=== PATIENT | female | born 1955 | race Caucasian/White ===

== ENCOUNTER 2019-09-15 17:51 | Emergency (ER) | payer MEDICARE, OTHER, SELFPAY ==
--- NOTE | 2019-09-15 17:45 | RT.EKG_ITS ---
APPROVED REPORT Exam: Resting ECG Patient Location: E HR:83 bpm ECG Measurements Heart Rate 83 AXIS WY 143 P -17 QRSd 71 QRS 15 QT 350 T 11 QTc 412 <Conclusion> Sinus rhythm...normal P axis, V-rate 60- 99 nondiagnostic
[2019-09-15 17:58] VITALS: BP 121/64; PULSE 84; RESP 18; TEMP 36.8; O2SAT 95
--- NOTE | 2019-09-15 18:00 | RT.EKG_ITS ---
APPROVED REPORT Exam: Resting ECG Patient Location: E HR:82 bpm ECG Measurements Heart Rate 82 AXIS ID 151 P -7 QRSd 81 QRS 2 QT 377 T -2 QTc 442 <Conclusion> Sinus rhythm...normal P axis, V-rate 60- 99 Low voltage, precordial leads...precordial leads <1.0mV Normal [place] I have reviewed and interpreted ECG and agree with software generated interpretation.
--- NOTE | 2019-09-15 18:12 | ED.GENADUL_ITS ---
Discharge Plan Disposition Patient Disposition: HOME Condition: Good Discharge Details Chief Complaint: Dizzy/Sync Clinical Impression: Weakness, Light-headedness Primary Care Provider: Clarisa Capps ED Provider: Rogerio Witt Meds and New Rx's Prescriptions: Continued levothyroxine 100 mcg Capsule RF: 0 Discharge Instructions Instructions: Lightheadedness (ED) Additional Instructions: Your work-up here in the emergency department is unremarkable. Your vital signs were all normal. CT scan of the head was unremarkable. Laboratory studies and EKG fine. Your thyroid studies are just a little bit of but these are unlikely to be causing your symptoms. Please go home and rest the rest of the weekend. Drink plenty of fluids and stay hydrated. Follow-up with your primary care in [place] this week. Return to ED for confusion, neurologic changes, chest pain, severe headache, syncope, shortness of breath. Referrals: Primary Care Provider [Outside] Discharge Data Discharge Date/Time-TO BE ENTERED AT DEPARTURE: 09/15/19 22:35 Medical Decision Making <Dennis Angulo MD - Last Filed: 09/24/19 17:14> 1829??64-year-old female with history of hypothyroidism, here with general malaise and lightheadedness with nausea. Patient is hemodynamically stable. ECG is nondiagnostic. Fingerstick normal. Unclear etiology for symptoms at this time. Consider hypovolemia versus hypothyroidism versus less likely CVA. Plan to obtain labs including electrolytes, TSH, and CT of the head. I will give IV fluid bolus and Zofran IV. 1930--patient reassessed and feeling better after 1 L bolus of saline. Labs reviewed and initial troponin negative. Electrolytes normal. Mild anion gap of 11.2 noted. TSH is low with free T4 pending. Urinalysis unremarkable. CT of the head was interpreted by radiology: No acute intracranial abnormality. Plan to give additional IV fluid bolus of 500 mL LR. Plan for delta troponin and repeat ECG, continued monitoring and reassessment. <Rogerio Witt MD - Last Filed: 09/15/19 22:56> Patient had presented to ED with onset of nausea and lightheadedness on the way home from eating out. Initially seen and evaluated by Dr. Angulo, please see his evaluation note. Patient signed out to me pending repeat EKG and troponin and reevaluation. Patient remained stable. Repeat EKG and troponin are normal. She is not orthostatic. She had no arrhythmias while here. Continues to not feel completely back to baseline but does feel better. Ambulatory in the department without problem. Repeat neurologic exam remains normal and nonfocal. She has not describing vertiginous or off balance issues. At this point just continues to complain of generalized fatigue and weakness. She does report previous episodes of feeling like she was going to pass out but nothing as intense as today. At this point I think she is safe for discharge. She should rest and take it easy over the rest of the weekend and stay hydrated. Follow-up with primary care in [place] this week. Return to ED if develops any neurologic changes, mental status changes, chest pain, shortness of breath, severe headache, other concerns. Lab Data Lab results reviewed: Yes I reviewed the patient's lab results. HPI <Dennis Angulo MD - Last Filed: 09/24/19 17:14> General Mode of arrival: EMS . Date/Time Provider Initiated Documentation: 09/15/19 18:10 . Limitations to Documentation: altered mental status . Information obtained by: patient and EMS . HPI Narrative: 64-year-old female with history of hypothyroidism, presents with general malaise, fatigue, lightheadedness that started while she was riding on back of a motorcycle with family after having seafood dinner and felt nauseous and lightheaded like she was going to pass out. Symptoms have persisted. Symptoms are severe. Constant. No modifiers. Patient notes prior to dinner she was feeling well. She denies associated chest pain, shortness of breath, headache, abdominal pain, focal numbness or weakness, fever or illness. No recent travel. Patient notes she has been taking her medication as prescribed. Related Data Home Medications Medication Instructions Recorded Confirmed levothyroxine 09/15/19 Allergies Allergy/AdvReac Type Severity Reaction Status Date / Time bee venom protein (honey bee) Allergy Unverified 09/15/19 18:05 General Stated Complaint: Dizzy/Sync SENG: 2 Review of Systems <Dennis Angulo MD - Last Filed: 09/24/19 17:14> All systems reviewed & are unremarkable except as noted in HPI and below Constitutional Constitutional: Denies chills, Reports fatigue, Denies fever(s), Denies headache(s) and Reports malaise ENT Ears, Nose, Mouth, and Throat: Denies headache(s) Cardiovascular Cardiovascular: Denies chest pain and Denies dyspnea Respiratory Respiratory: Denies cough and Denies dyspnea Gastrointestinal Gastrointestinal: Denies abdominal pain and Reports nausea Neurologic Neurologic: Denies headache(s) Endocrine Endocrine: Reports fatigue PFSH <Dennis Angulo MD - Last Filed: 09/24/19 17:14> Medical History Hypothyroid (Chronic) Social History Smoking/Tobacco Use Status: Never Alcohol Intake: never Drug use: Never Substance use type: does not use Do you feel safe at home: Yes Do you feel safe in your relationship?: Yes Exam <Dennis Angulo MD - Last Filed: 09/24/19 17:14> Const General: cooperative and no acute distress Nutritional Appearance: well nourished Orientation: obtunded HENRI Head: normocephalic and atraumatic Mouth: moist mucous membranes Eyes Conjunctivae: normal conjunctivae Sclera: normal sclerae EOM: EOM intact bilaterally Neck Neck: trachea midline and supple Resp Auscultation: clear to auscultation bilaterally, no rales, no rhonchi and no wheezes Cardio Jugular venous pressure: no JVD Rate: regular rate and not tachycardic Rhythm: regular rhythm GI Palpation: soft, not firm, no guarding, no masses, not rigid and nontender Skin General skin exam: no rashes or lesions noted Neuro General: patient alert, patient awake, patient oriented x3 and tone normal Extrem General: no calf tenderness and no edema Psych Appearance: grossly normal Speech and Movement: speech clear and slowed movement Thought Content: normal Insight: insight good Course <Dennis Angulo MD - Last Filed: 09/24/19 17:14> Vital Signs Vital signs: Vital Signs Temperature 36.8 C 09/15/19 17:58 Pulse 84 09/15/19 17:58 Respiratory Rate 18 09/15/19 17:58 Blood Pressure 121/64 09/15/19 17:58 Pulse Oximetry 95 09/15/19 17:58 Temperature 36.8 C 09/15/19 17:58 Temperature Source Temporal Artery Scan 09/15/19 17:58 Pulse 84 09/15/19 17:58 Respiratory Rate 18 09/15/19 17:58 Blood Pressure 121/64 09/15/19 17:58 Pulse Oximetry 95 09/15/19 17:58 Oxygen Delivery Method Room Air 09/15/19 17:58 Oxygen Flow Rate 0 09/15/19 17:58 Pain Level 0 09/15/19 17:58 Sign Out <Dennis Angulo MD - Last Filed: 09/24/19 17:14> Sign Out Data: Sign Out Comment: Follow-up on delta troponin and repeat ECG, reassess the patient for disposition. Last updated by Dennis Angulo MD at 09/15/19 20:04
[2019-09-15] MEDS: Ondansetron 4 MG/2 ML VIAL IVP (18:20)
[2019-09-15] MEDS: Normal Saline 1,000 ML 1000 ML IV (18:21)
[2019-09-15 18:23] LABS: Abs Immature Grans 0.01 k/cumm (0.0-0.09); Absolute Basophil Count 0.02 k/cumm (0.0-0.2); Absolute Lymphocyte Count 2.11 k/cumm (1.2-3.4); Absolute Monocyte Count 0.75 k/cumm (0.11-0.7); Basophils % 0.3; Eosinophils % 1.3; HCT 36.4 % (36.0-46.0); HGB 12.7 g/dL (12.0-15.5); Immature Grans % 0.1 %; Lymphocytes % 26.7; Mean Corp. HGB Concentration 34.9 g/dL (32.0-36.0); Mean Corpuscular Hemoglobin 30.7 pg (27.0-33.0); Mean Corpuscular Volume 87.9 fL (80-95); Mean Platelet Volume 11.4 fL (8.0-11.0); Monocytes % 9.5; Neutrophils % 62.1; Platelet Count 205 x1000/uL (130-400); RBC 4.14 m/cumm (4.00-5.20); White Blood Cell Count 7.89 k/cumm (4.4-10.8)
--- NOTE | 2019-09-15 18:35 | DI.CT_ITS ---
EXAM: CT HEAD WO CLINICAL HISTORY: Fatigue, generalized weakness, dizziness. TECHNIQUE: Imaging Protocol: Axial computed tomography images with coronal and sagittal reformatted images were created and reviewed COMPARISON: No exams were available for comparison FINDINGS: Ventricles and Extra axial spaces: Normal in size and morphology for the patient's age. Hemorrhage: None. Cerebral parenchyma: Normal. Midline shift: None. Brainstem/Cerebellum: Normal. Calvarium: Normal. Visualized Paranasal sinuses/Mastoids: Clear. Soft Tissues: Unremarkable. IMPRESSION: No acute intracranial process. RADIATION DOSE DELIVERED: Total DLP DATA REPOSITORY: All CT scans at this facility are submitted to the National Radiology Data Registry (NRDR) Dose Index Registry (DIR) with the [employer] (ACR). RADIATION OPTIMIZATION: All CT scans at this facility use at least one of these dose optimization te chniques: automated exposure control; mA and/or kV adjustment per patient size (includes targeted exa ms where dose is matched to clinical indication); or iterative reconstruction.
[2019-09-15 18:42] VITALS: BP 117/64; PULSE 81; RESP 14; O2SAT 92
[2019-09-15 18:45] LABS: ALT 19 U/L (14-59); AST 16 U/L (15-37); Albumin 3.5 g/dL (3.4-5.0); Alkaline Phosphatase 95 U/L (46-116); Anion Gap 11.2 mmol/L (3-11); BUN 18 mg/dL (7-18); Bilirubin, Total 0.5 mg/dL (0.2-1.0); CO2 24.8 mmol/L (21.0-32.0); CREATININE 0.93 mg/dL (0.55-1.02); Chloride 105 mmol/L (98-107); Glucose 140 mg/dL (74-106); Potassium 3.7 mmol/L (3.5-5.1); Sodium 141 mmol/L (136-145); TSH (W/Ref FT4) 0.05 uIU/mL (0.36-3.74); Total Protein 6.8 g/dL (6.4-8.2)
--- NOTE | 2019-09-15 18:48 | DI.VRAD_ITS ---
PROCEDURE INFORMATION: Exam: CT Head Without Contrast Exam date and time: 09/15/2019 6:12 PM Age: 64 years old Clinical indication: Dizziness and other: Weakness, fatigue TECHNIQUE: Imaging protocol: Computed tomography of the head without contrast. COMPARISON: No relevant prior studies available. FINDINGS: Brain: Normal. No hemorrhage. Unremarkable white matter. No mass effect. Ventricles: Normal. No ventriculomegaly. Bones/joints: Unremarkable. No acute fracture. Sinuses: Visualized sinuses are unremarkable. No fluid levels. Mastoid air cells: Visualized mastoid air cells are well aerated. Soft tissues: Unremarkable. IMPRESSION: No acute intracranial abnormality. Dictated and Authenticated by: Kala Mcnulty MD. Ordering:MARYCHUY Collins MD
[2019-09-15 18:52] LABS: Troponin I < 0.05 ng/mL (<0.06)
[2019-09-15 19:14] LABS: Bilirubin Negative (Negative); Blood Negative (Negative); Clarity Clear (Clear); Glucose Negative (Negative); Ketones Negative (Negative); Leukocyte Esterase Negative (Negative); Nitrite Negative (Negative); Urobilinogen 0.2 EU/dL (Up TO 0.2)
[2019-09-15] MEDS: Lactated Ringers 500 ML IV (19:34)
[2019-09-15 19:53] VITALS: BP 103/58; PULSE 84; RESP 15; O2SAT 92
--- NOTE | 2019-09-15 19:53 | NUR.NOTE ---
report to DARVIN Plummer
[2019-09-15 19:56] LABS: FREE T4 1.54 ng/dL (0.76-1.46)
[2019-09-15 21:38] LABS: Troponin I < 0.05 ng/mL (<0.06)
[2019-09-15 21:47] VITALS: BP 101/62; BP 102/63; BP 106/54; PULSE 78; PULSE 82; PULSE 88
[2019-09-15 21:52] VITALS: BP 102/63; PULSE 88; RESP 16; TEMP 36.6; O2SAT 97
--- NOTE | 2019-09-15 21:58 | NUR.NOTE ---
Ambulated to BR with steady gait. Pt denies dizziness, lightheadedness.
== END 2019-09-15 22:35 | disposition home or self-care (01) ==
PROVIDERS: Student in an Organized Health Care Education/Training Program; Emergency Provider Emergency Medicine; PCP Registered Nurse
DX: R42 Dizziness and giddiness (principal); R53.1 Weakness; R11.0 Nausea
CPT/HCPCS: 36415; 80053; 93005; 96361; 96374; 99285; 70450; 81003; 83735; 84439; 84443; 84484; 85025; 93010; J2405

== ENCOUNTER 2021-07-29 09:47 | Outpatient (CLI) | payer MEDICARE, OTHER, SELFPAY ==
[2021-07-29 11:21] LABS: Source Nasal/Nares
[2021-07-29 16:34] LABS: COVID-19 PCR Negative (Negative)
== END 2021-07-29 09:48 | disposition home or self-care (01) ==
LOC: LBO 09:49
PROVIDERS: PCP Registered Nurse; Visit Provider Podiatrist
DX: Z20.822 Contact with and (suspected) exposure to COVID-19 (principal); Z01.818 Encounter for other preprocedural examination
CPT/HCPCS: 87635; U0005

== ENCOUNTER 2021-07-31 07:21 | Day surgery (SDC) | payer MEDICARE, OTHER, SELFPAY ==
--- NOTE | 2021-07-30 17:28 | HPE_ITS ---
Date of service: 07/31/21 Assessment and Plan Assessment and plan (1) Bunion, right foot: Start date: 07/31/21 Status: Acute Assessment and plan: surgical repair of the right bunion deformity with osteotomy. Potential risks and complications were discussed. All questions were answered in detail. No promises made as to the final out come of surgery. Informed consent was von carson History of Present Illness History of Present Illness Chief Complaint: HAV deformity right foot Narrative: 66 YO female with progressive deformity and pain associated with a right bunion. Pain is interfering with shoe gear and daily activity. Palliative treatments have failed to provide relief of symptoms. PFSH All Active Problems (Updated 07/30/21 @ 17:35 by Nehemiah Callaway DPM) Bunion, right foot (Acute) Medical History Hypothyroid Surgical History History of carpal tunnel surgery History of mandibular surgery Pt. stated It was pulling my bottom jaw forward and putting pins in it Hx of tubal ligation Status post de Quervain's release surgery Social History Smoking/Tobacco Use Status: Never Smoking risk assessment performed?: Yes Alcohol Intake: never Drug use: Never Substance use type: does not use Do you feel safe at home: Yes Do you feel safe in your relationship?: Yes Meds Allergies and Home Medications Allergies Allergy/AdvReac Type Severity Reaction Status Date / Time bee venom protein (honey bee) Allergy Severe Anaphylaxis Unverified 07/30/21 08:09 Home Medications Medication Instructions Recorded Confirmed Type Lactobacillus 40-Bifidobact 1 cap PO HS 07/30/21 07/30/21 History 3-S.thermophilus 100 billion cell capsule (Probiotic) [place]'s wort 300 mg tablet 375 mg PO DAILY 07/30/21 07/30/21 History levothyroxine 50 mcg tablet 50 mcg PO DAILY 07/30/21 07/30/21 History magnesium 250 mg tablet 250 mg PO HS 07/30/21 07/30/21 History multivitamin 1 tab PO DAILY 07/30/21 07/30/21 History multivitamin,wq-ssdo-iwuinzgv 1 tab PO DAILY 07/30/21 07/30/21 History omega-3 fatty acids-vitamin E 1 cap PO HS 07/30/21 07/30/21 History 1,000 mg capsule potassium 99 mg tablet 99 mg PO DAILY 07/30/21 07/30/21 History tumeric 100 mg-rolanad 150 mg-olive 1 cap PO DAILY 07/30/21 07/30/21 History 50 mg-oreg 150 mg-caprylate capsule zinc 50 mg tablet 50 mg PO HS 07/30/21 07/30/21 History Exam Narrative Exam Narrative: 66 YO female in NAD Heads normocephalic eyes PERRLA Hearing adequate Uvula is midline, airway looks accesssible Heart has RRR, no gallops, rubs or murmurs Lung li are clear Abdomen is soft, BS x 4 peripheral pulses are palpable, no edema, feet are warm to the touch Muslce gps are 5/5 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 Radha articular tenderness is noted Neuro exam grossly intact
--- NOTE | 2021-07-31 07:00 | W.ANESPRE ---
General Info Date of Service Date Performed: 07/31/21 Height: 4 ft 11 in Weight: 62.596 kg Body Mass Index (BMI): 27.8 Surgical Procedure: Operation Date: 07/31/21 09:25 Proposed Procedure Side Surgeon p Bunionectomy Right Nehemiah Callaway DPM Meds Allergies and Home Medications Allergies Allergy/AdvReac Type Severity Reaction Status Date / Time bee venom protein (honey bee) Allergy Severe Anaphylaxis Unverified 07/31/21 07:58 Home Medication Medication Instructions Recorded Lactobacillus 40-Bifidobact 1 cap PO HS 07/30/21 3-S.thermophilus 100 billion cell capsule (Probiotic) [place]'s wort 300 mg tablet 375 mg PO DAILY 07/30/21 levothyroxine 50 mcg tablet 50 mcg PO DAILY 07/30/21 magnesium 250 mg tablet 250 mg PO HS 07/30/21 multivitamin 1 tab PO DAILY 07/30/21 multivitamin,fe-djqx-nzuuwbow 1 tab PO DAILY 07/30/21 omega-3 fatty acids-vitamin E 1 cap PO HS 07/30/21 1,000 mg capsule potassium 99 mg tablet 99 mg PO DAILY 07/30/21 tumeric 100 mg-rolanda 150 mg-olive 1 cap PO DAILY 07/30/21 50 mg-oreg 150 mg-caprylate capsule zinc 50 mg tablet 50 mg PO HS 07/30/21 Current Visit Medications: Current Medications Generic Name Dose Route Start Last Admin Trade Name Freq PRN Reason Stop Dose Admin Sodium Chloride 500 mls @ 0 mls/hr 07/31/21 06:00 Saline 500ml Bag IV 08/27/21 23:59 PRN PRN As Directed Cefazolin Sodium/Dextrose 1 gm in 50 mls @ 100 mls/hr 07/31/21 06:00 Ancef Duplex IVPB 07/31/21 16:00 PREOP MARGARET Ringer's Solution 1,000 mls @ 80 mls/hr 07/31/21 07:00 IV INFUSION [facility] IV Miscellaneous Supplies 1 each 07/31/21 06:00 Iv Access IV 08/27/21 23:59 DIRECTED MARGARET Povidone Iodine 0 ml 07/31/21 06:00 Povidone-Iodine Soln. 118 Ml Btl TP 08/27/21 23:59 DIRECTED [facility] Sodium Chloride 0 ml 07/31/21 06:00 Normal Saline Flush 10 Ml Syr IVP 08/27/21 23:59 PRN PRN PFSH Active Problems Active Problems: Problem Status Onset Code Bunion, right foot M21.611 Medical History Medical History Hypothyroid Medical History Comments:: Pt. states when she had dequervains release they gave her too much anesthesia, and had a hard time waking her up. Surgical History Surgical History History of carpal tunnel surgery History of mandibular surgery Pt. stated It was pulling my bottom jaw forward and putting pins in it Hx of tubal ligation Status post de Quervain's release surgery Tobacco Smoking/Tobacco Use Status: Never Alcohol Alcohol Intake: never Substance Use Substance use: Never Substance use type: does not use Vital Signs and Lab Results Lab Results Blood Type / Crossmatch: No Data to Display Complete Blood Count: No Data to Display Complete Metabolic Panel: No Data to Display Liver Function Panel: No Data to Display Coagulation Panel: No Data to Display Cardiac Panel: No Data to Display Arterial Blood Gas: No Data to Display Venous Blood Gas: No Data to Display Pancreas Panel: No Data to Display Thyroid Panel: No Data to Display Infectious Disease: Coronavirus (COVID-19)(PCR) Negative (Negative) 07/29/21 11:10 Coronavirus 2019 Source Nasal/Nares 07/29/21 11:10 Blood Cultures: No Data to Display Toxicology Panel: No Data to Display Imaging and Studies Imaging and Studies Study information below may be from another EMR and interpreted by another provider. Please see original notes in EMR for more complete details. EKG Summary: Sinus rhythm...normal P axis, V-rate 60- 99 Low voltage, precordial leads...precordial leads <1.0mV Normal [place] Anesthesia Assessment and Plan Anesthesia History Personal History: Delayed Emergence Family History: No Family History of Anesthesia Complications Exercise Tolerance Exercise Tolerance: Metabolic Equivalents>4 Pertinent Negatives Pertinent Negatives: No Symptoms of GERD, No Major Cardiovascular Symptoms or Complaints, No Major Pulmonary Symptoms or Complaints and No History of CVA/TIA Cardiac & Pulmonary Exam Cardiac Exam: Normal S1/S2 Heart Sounds Pulmonary Exam: Clear Bilateral Breath Sounds Implantable Cardiac Device Does patient have a Pacemaker or an ICD?: No Airway Exam Known Difficult Airway: No Mallampati Class: 2 Mouth Opening: Normal (> 3cm) Thyromental Distance: Greater than 3 cm Neck Range of Motion: Full ROM Neck Circumference: Normal Teeth Condition: Normal Dentition and Removable Dentures/Plates Lower ASA Classification ASA Score: ASA 2 Emergency Case?: No NPO Status NPO Status: NPO Clears >2 hours, Solids >8 hours Anesthesia Plan Resuscitation Status: Full Code Anesthesia Technique: General Anesthesia Airway Planned: Natural Airway Monitors Used: Standard Monitors
[2021-07-31 08:01] VITALS: BP 105/73; PULSE 76; RESP 18; TEMP 36.3; O2SAT 96
[2021-07-31] MEDS: Lactated Ringers 1,000 ML 80 ML IV (08:33)
[2021-07-31 09:18] VITALS: BMI 27.8
[2021-07-31] MEDS: ceFAZolin 1 GM/50 ML BAG IVPB (09:25)
[2021-07-31] MEDS: Bupivacaine 0.5% Pres-Free 30 ML VIAL (09:52)
[2021-07-31] MEDS: Lidocaine 1% Pres-Free 30 ML VIAL (09:52)
[2021-07-31] MEDS: Dexamethasone 4 MG/ML VIAL (09:53)
--- NOTE | 2021-07-31 10:38 | W.PM.DS.N ---
Date of service: 07/31/21 Time of Service: 09:38 DS: Diagnosis Discharge Diagnosis (1) Bunion, right foot: Start date: 07/31/21 Start time: 09:38 Status: Acute Asessment and Plan: Status post modified Scooter bunionectomy with Synthes 2.7 cortical screw fixation right foot Discharge Plan Disposition Patient Disposition: HOME Condition: Good Discharge Details Attending Provider: Nehemiah Callaway Primary Care Provider: Clarisa Capps Home Meds and New Rx's Prescriptions: New naproxen [Naprosyn] 500 mg tablet 500 mg PO BID Qty: 60 0RF hydrocodone-acetaminophen 5-325 mg tablet 1 tab PO Q6H PRN (Reason: pain) Qty: 9 0RF No Action multivitamin Tablet 1 tab PO DAILY Maci's wort 300 mg Tablet 375 mg PO DAILY Potassium-99 99 mg Tablet 99 mg PO DAILY levothyroxine 50 mcg Tablet 50 mcg PO DAILY zinc 50 mg Tablet 50 mg PO HS magnesium 250 mg Tablet 250 mg PO HS A/B/C/D-E Vitamins Tablet 1 tab PO DAILY Fish Oil 1,000 mg Capsule 1 cap PO HS Probiotic 100 billion cell Capsule 1 cap PO HS jpkifoe-idrw-ohrdv-oreg-capryl 100 mg-150 mg- 50 mg-150 mg Capsule 1 cap PO DAILY Discharge Instructions Activity:: Elevate Remove Dressings/Wound Care:: Do Not Remove Shower/Bathe:: Cover Activity:: Activity as Tolerated Diet:: Normal Diet Discharge Orders Discharge Orders: Discharge Order (Routine); Ordered 07/31/21 Ordered By: Nehemiah Callaway DS: Summary Time Spent with Patient providing and/or coordinating discharge services: Less than 30 minutes Status at Discharge Functional status at discharge: independent ambulation Overall status at discharge: patient is back to baseline Mental Status: mental status grossly normal Speech and Movement: speech and movement normal Mood: congruent mood Affect: normal affect Exam Psych Mental Status: mental status grossly normal Speech and Movement: speech and movement normal Mood: congruent mood Affect: normal affect DS: Data Vitals/I&O Vitals and I&O: Vital Signs Temperature 36.3 C L 07/31/21 08:01 Pulse 76 07/31/21 08:01 Pulse Rhythm Regular 07/31/21 08:01 Respiratory Rate 18 07/31/21 08:01 Respiratory Depth Normal 07/31/21 08:01 Blood Pressure 105/73 07/31/21 08:01 Pulse Oximetry 96 07/31/21 08:01 Oxygen Delivery Method Room Air 07/31/21 08:01 Oxygen Flow Rate 0 07/31/21 08:01 Pain Level 0 07/31/21 08:01 Intake & Output 07/30/21 07/31/21 07/31/21 18:59 06:59 18:59 Intake Total 450 / 450 Balance 450 / 450 Weight 62.596 kg 63.6 kg Intake: IV 450 / 450 PFSH All Active Problems Bunion, right foot (Acute) Medical History Hypothyroid Surgical History History of carpal tunnel surgery History of mandibular surgery Pt. stated It was pulling my bottom jaw forward and putting pins in it Hx of tubal ligation Status post de Quervain's release surgery Social History Smoking/Tobacco Use Status: Never Smoking risk assessment performed?: Yes Alcohol Intake: never Drug use: Never Substance use type: does not use Do you feel safe at home: Yes Do you feel safe in your relationship?: Yes
[2021-07-31 10:43] VITALS: BP 110/64; PULSE 65; RESP 16; TEMP 35.9; O2SAT 96
--- NOTE | 2021-07-31 10:46 | ROE_ITS ---
Date of service: 07/31/21 Time of Service: 09:46 Operative Note Operative Note DATE OF PROCEDURE: 07/31/21 PRE-OP DIAGNOSIS: Right bunion deformity POST-OP DIAGNOSIS: same PROCEDURE: Modified Scooter bunionectomy with internal Synthes 2.7 cortical screw fixation right foot SURGEON: Nehemiah Callaway Refer to Anesthesia Record ESTIMATED BLOOD LOSS: 1 PATHOLOGY: none sent TOURNIQUET TIME: 51 COMPLICATIONS: None Patient was transported to: same day Patient's condition: stable Implants: Synthes 2.7 cortical screw 16 mm Indications: 66-year-old female with progressive pain associated with a right bunion deformity. Pain is experienced with shoe gear interfering with daily activities. Nonoperative treatment failed to provide sufficient relief of symptoms. She understands risk and complications of surgery pertaining to pain, scarring, infection, nerve injury, under or overcorrection of deformity, nonunion malunion delayed union of the osteotomy, difficulty with the hardware review requiring revisional procedure. All questions have been answered in detail. Informed consent been obtained. Procedure Description: Bindu was brought to the operative suite placed in the supine position with the right foot prepped and draped in the usual sterile podiatric fashion. Timeout was performed for safe surgery. Anesthesia was obtained through IV general and local blockade of the first ray utilizing 10 cc of a 50: 50 mixture 1% lidocaine plain, 0.5% Marcaine plain. The right foot was exsanguinated well- padded ankle tourniquet inflated 250 mmHg attention was directed to the dorsal medial aspect of the first MPJ where a 5 cm incision was placed medial parallel to the EHL tendon. The incision was deepened in controlled depth fashion hemostasis being acquired with electrocautery. Dissection was carried down to the joint capsule. Lateral contracture of the joint noted. A lateral capsulotomy and adductor tendon release performed. The fibular sesamoid was mobilized and soft tissue attachments released at this time I decided to leave the fibular sesamoid in place. Attention was directed to the medial aspect of the joint where an inverted L capsulotomy was performed. The joint capsule was reflected. The head of the first metatarsal delivered into the wound. Significant hypertrophy along the medial aspect of the first metatarsal head was noted with power instrumentation this excess bone was resected. The articular surface appeared viable the possible was increased and offset V osteotomy was then performed so as to translocate and rotate the first metatarsal into a corrected position. This was easily accomplished fixated with a single Synthes cortical screw 2.8 mm. The compression of the osteotomy and shape of the design afforded a very stable complex. The medial shelf was resected with power instrumentation and all rough and bony edges rasped move copious irrigation was performed the extensor hallucis brevis tendon was then isolated and a tenotomy performed this helped to relax the great toe and allow it to come into a more rectus position. The medial capsule was then closed with simple interrupted suture 3-0 Vicryl with a capsulorrhaphy being performed so as to tighten the medial joint capsule the subcutaneous layer was repaired with simple interrupted suture of 4-0 Vicryl the subcuticular layer was repaired with continuous running suture 4-0 Monocryl 4 mg of dexamethasone phosphate was then infused deeply into the wound Mastisol half-inch Steri-Strips applied Xeroform gauze fluff compression dressings applied tourniquet was released at 51 minutes with vascularity returning immediately to all toes Bindu left the OR with vital signs stable vascular status intact sharp and sponge counts were correct should be followed by myself in the office next week. Not reviewed for accuracy utilizing Kiera naturally speaking.
--- NOTE | 2021-07-31 11:03 | W.ANESPOSTOP ---
Postoperative Evaluation Date, Time and Location Date Performed: 07/31/21 Time Performed: 11:03 Patient Location: Day Surgery Unit Vital Signs Most Recent Imported Vital Signs: Most Recent Vital Signs Temp Pulse Resp BP Pulse Ox 35.9 C L 65 16 110/64 96 07/31/21 10:43 07/31/21 10:43 07/31/21 10:43 07/31/21 10:43 07/31/21 10:43 Pain Score Most Recent Pain Score: Most Recent Pain Score Pain Level 0 07/31/21 10:43 Assessment Mental Status: Arousable with meaningful communication Airway and Respiratory Function: Patent airway with normal (patient baseline) respiratory exam Cardiovascular Function: Hemodynamically Stable Hydration Status: Adequately Hydrated Nausea & Vomiting: No Nausea or Vomiting Pain: Pt. Denies Any Pain Peripheral Nerve Block: Regional nerve block not resolved at time of post operative discharge (Dr. Callaway localized the patient)
[2021-07-31 11:20] VITALS: BP 118/72; PULSE 58; RESP 16; TEMP 36.4; O2SAT 94
[2021-07-31 12:27] VITALS: BP 106/78; PULSE 76; RESP 16; TEMP 37.1; O2SAT 93
== END 2021-07-31 13:25 | disposition home or self-care (01) ==
PROVIDERS: PCP Registered Nurse; Visit Provider Podiatrist
PROC: (CPT 28292; principal; 2021-07-31 09:15)
DX: M21.611 Bunion of right foot (principal); E03.9 Hypothyroidism, unspecified
CPT/HCPCS: 28295; J0690; J1100; J1885; J2405; J2704